=== PATIENT | female | born 1980 | race Caucasian/White ===

== ENCOUNTER 2022-04-22 17:50 | Outpatient (CLI) | payer OTHER, SELFPAY | END 2022-04-22 17:51 | disposition home or self-care (01) | LOC: LKVREF 05-03 14:07 | PROVIDERS: PCP Emergency Medicine; Visit Provider Registered Nurse | DX: Z01.419 Encounter for gynecological examination (general) (routine) without abnormal findings (principal); R30.0 Dysuria | CPT/HCPCS: 87086 ==

== ENCOUNTER 2022-07-06 19:01 | Outpatient (CLI) | payer BC, SELFPAY ==
[2022-07-07 15:56] LABS: Chloride* 103 mmol/L (96-114); Potassium* 4.3 mmol/L (3.6-5.1); Sodium* 137 mmol/L (135-149)
[2022-07-07 15:59] LABS: Blood Urea Nitrogen* 11 mg/dL (5-24); Carbon Dioxide* 26 mmol/L (20-32); Creatinine* 0.9 mg/dL (0.5-1.5); Estimated Glomerular Filt Rate 81 ml/min
[2022-07-07 16:00] LABS: Calcium* 9.5 mg/dL (8.4-10.6); Glucose* 90 mg/dL (60-115)
== END 2022-07-06 19:02 | disposition home or self-care (01) ==
LOC: LKVREF 19:02
PROVIDERS: PCP Emergency Medicine; Visit Provider Emergency Medicine
DX: I10 Essential (primary) hypertension (principal)
CPT/HCPCS: 80048

== ENCOUNTER 2022-07-19 09:33 | Outpatient (CLI) | payer BC, SELFPAY ==
--- NOTE | 2022-07-19 09:45 | CRLHL7_ITS ---
For Patients: As a result of the Century Cures Act, medical imaging exams and procedure reports are released immediately into your electronic medical record. You may view this report before your referring provider. If you have questions, please contact your health care provider. INDICATION: Hypertension TECHNIQUE: Grayscale, color Doppler and power Doppler evaluation of the kidneys/renal arteries performed. COMPARISON: None available FINDINGS: BILATERAL RENAL ARTERY DUPLEX ULTRASOUND ABDOMINAL AORTA: Peak systolic velocity = 85 cm/s. No aortic aneurysm. RIGHT KIDNEY: 11.3 cm in length. There is no hydronephrosis. Peak systolic velocity = 118 cm/second Renal artery to aortic peak systolic velocity ratio = 1.4 Resistive indices: 0.5-0.6 Renal vein = patent LEFT KIDNEY: 11.5 cm in length. There is no hydronephrosis. Peak systolic velocity = 120 cm/second Renal artery to aortic peak systolic velocity ratio = 1.4 Resistive indices: 0.5 Renal vein = patent IMPRESSION: No evidence of significant renal artery stenosis. Dictated by Tarik Nash MD @ 07/19/2022 11:25:26 AM (Electronically Signed)
== END 2022-07-19 09:34 | disposition home or self-care (01) ==
PROVIDERS: PCP Emergency Medicine; Visit Provider Emergency Medicine
DX: I10 Essential (primary) hypertension (principal)
CPT/HCPCS: 76775; 93975

== ENCOUNTER 2022-07-19 19:27 | Outpatient (CLI) | payer BC, SELFPAY ==
--- NOTE | 2022-07-27 12:11 | P.SLS_ITS ---
Sleep Study Details Details Interpreting Provider: Porter Ledesma MD Date of Sleep Study: 07/19/22 Sleep Study Details: STUDY TYPE:? Home ? BMI:? 25.5 ORDERING PROVIDER:? Luke INDICATION:? Concerns about sleep apnea ? SLEEP SUMMARY:? 386.6 monitored minutes RESPIRATORY SUMMARY:? AHI 2.8, supine 4.4, prone 0, left lateral 2.3 Low oxygen 92 Snoring 1% PERIODIC LIMB MOVEMENTS OF SLEEP:? Not recorded CARDIAC:? Range 54-90, mean 61.5 beats per minute IMPRESSION:? This study does not demonstrate clinically significant obstructive sleep apnea. RECOMMENDATION: If sleep disorder is strongly suspected would recommend an in- lab study
== END 2022-07-19 19:28 | disposition home or self-care (01) ==
LOC: SLEEP 19:28
PROVIDERS: PCP Emergency Medicine; Visit Provider Emergency Medicine
DX: R06.83 Snoring (principal); G47.8 Other sleep disorders; I10 Essential (primary) hypertension
CPT/HCPCS: 76775; 93975; 95806

== ENCOUNTER 2022-10-26 18:29 | Outpatient (CLI) | payer BC, SELFPAY | END 2022-10-26 18:30 | disposition home or self-care (01) | LOC: LKVREF 18:30 | PROVIDERS: PCP Emergency Medicine; Visit Provider Emergency Medicine | DX: I10 Essential (primary) hypertension (principal) | CPT/HCPCS: 80048 ==

== ENCOUNTER 2022-12-10 12:11 | Outpatient (CLI) | payer BC, SELFPAY ==
--- OUTSIDE RECORDS SUMMARY | 2022-12-11 08:12 | XMS_ITS | Patient Health Record ---
Author Name Unknown Organization [facility] Address [address] [address] Care Team Providers Care Design Manager Name Role Phone April Parker In [facility] Care Unavailable ALLERGIES No Known Allergies REASON FOR REFERRAL No Information MEDICATIONS Medication SIG (Take, Route, Frequency, Duration) Notes Start Date End Date Status Synthroid 112 MCG Oral 06/28/2018 A ctive Synthroid 100 MCG Oral 06/28/2018 A ctive Celecoxib 200 MG Oral 06/28/2018 Ac tive Triamcinolone Acetonide 0.025 % External 06/28/2018 Active Amoxicillin-Pot Clavulanate 875-125 MG Oral 06/28/2018 Activ e Terazosin HCl 5 MG Oral 06/28/2018 Active Gabapentin 800 MG Oral 06/28/2018 A ctive MUPIROCIN CALCIUM 2 % TOPICAL CREAM *Reorder from [facility] for eRx and Interaction Alerts* 06/28/2018 Active Famotidine 40 MG Oral 06/28/2018 Ac tive Fluconazole 150 MG Oral 06/28/2018 Active Wellbutrin XL 300 MG 1 tablet in the morning Orally Once a day Active Labetalol HCl 200 MG Oral 06/28/2018 Active Depo-Provera 150 MG/ML 1 ml Intramuscula r 90 days for 90 day(s) Active Ibuprofen 600 MG Oral 06/28/2018 Ac tive Colace 100 MG Oral 06/28/2018 Activ e valACYclovir HCl 1 GM Oral 06/28/2018 Active Ciprofloxacin HCl 500 MG Oral 06/28/2018 Active Tylenol with Codeine #3 300-30 MG Oral *Reorder from Nuvilex for eRx and Interaction Alerts* 06/28/2018 Active Doxycycline Hyclate 100 MG Oral 06/28/2018 Active Metronidazole 0.75 % Vaginal 06/28/2018 Active Docusate Sodium 100 MG Oral 06/28/2018 Active GaviLyte-C 240-22.72-6.72 -5.84 gram Oral *[facility]* 06/28/2018 Active Lidocaine 0.5 % as directed Externally Once a day for 10 days 06/25/2019 Active Escitalopram Oxalate 20 MG 1 tablet Orally Once a day Active Levothyroxine Sodium 100 MCG Oral 06/28/2018 Active Meloxicam 15 MG 1 tablet Orally Once a day for 30 day(s) 03/19/2020 Active Meloxicam 7.5 MG Oral 06/28/2018 Ac tive Liothyronine Sodium 5 MCG Oral 06/28/2018 Active Mupirocin Calcium 2% External *please rev iew for potential _update for e-prescription and drug interaction check* 06/25/2018 Not-Taking Percocet 5-325 MG Oral 06/28/2018 A ctive metroNIDAZOLE 0.75 % Vaginal 06/25/2018 Not-Taking Pepcid 40 MG Oral 06/28/2018 Active Acetaminophen-Codeine #2 300-15 MG Oral 06/28/2018 Active Depo-Provera 150 MG/ML 1 ml Intramuscula r 1 for 90 days Active Phenazopyridine HCl 200 MG Oral 06/28/2018 Active Valtrex 1 GM 1 tablet Orally Twice a day for 30 day(s) Not-Taking Naproxen 500 MG Oral 06/28/2018 Act javier Acyclovir 400 MG 1 tablet Orally Twice a day for 10 day(s) 06/25/2019 Not-Taking methylPREDNISolone 4 MG Oral 06/28/2018 Active MetroGel-Vaginal 0.75 % Vaginal *please review for potential _update for e-prescription and drug interaction check* 06/25/2018 Not-Taking oxyCODONE-Acetaminophen 5-325 MG Oral 06/28/2018 Active Fluconazole 150 MG Oral 06/25/2018 Not-Taking Nitrofurantoin Monohyd Macro 100 MG Oral 06/28/2018 Active Acetaminophen-Codeine #3 300-30 MG Oral 06/28/2018 Active SOCIAL HISTORY Sex Assigned At : Social History Observation Description Sex Assigned At Female PROBLEMS Problem Type ICD Code Onset Dates Problem Status W/U Status Risk SNOMED Code Notes Problem Other sex counseling (Z70.8) Active confirmed Counseling (425465093) Problem Contraceptive education (Z30.09) Active confirmed 414595907 Problem Irregular menses (N92.6) Active confirmed Menstrual disorder (811573862) Problem Negative test (Z32.02) Active confirmed 849641517 Problem Abnormal laboratory test result (R89.9) Active confirmed 694886877 Problem Elevated tumor markers (R97.8) Active confirmed 705465046 Encounters Encounter Location Date Provider Diagnosis [facility] [place] [place] [id number] 01/26/2022 [facility] [place] PLAN OF TREATMENT Pending Test Test Name Order Date US, Pelvis and TV 03/05/2020 Future Test Test Name Order Date MAMMOGRAM SCREENING (BILATERAL) 04/16/20 20 Insurance Providers Payer Name Payer Address Payer Phone Subscriber Number Group Number Insured Name Patient Relationship to Insured Coverage Start Date Coverage End Date [facility] [address] [place] [address] [id number] ASHLEY DUBON Self - patient is the insured MEDICATIONS ADMINISTERED Medication Instructions Date of Administration Dosage Notes Depo 08/19/2021 Depo 11/10/2021 MEDICAL (GENERAL) HISTORY Medical History History ICD Code Problems: Thyroidectomy Hypertensive disorder
== END 2022-12-10 12:12 | disposition home or self-care (01) ==
LOC: NFLDREF 12-11 08:10
PROVIDERS: PCP Emergency Medicine; Referring Provider Emergency Medicine; Visit Provider Nurse Practitioner Family
DX: R30.0 Dysuria (principal); R10.2 Pelvic and perineal pain; R11.0 Nausea; N30.01 Acute cystitis with hematuria
CPT/HCPCS: 87086

== ENCOUNTER 2022-12-28 12:03 | Outpatient (CLI) | payer BC, SELFPAY ==
--- OUTSIDE RECORDS SUMMARY | 2022-12-30 08:59 | XMS_ITS | Patient Health Record ---
Author Name Unknown Organization [facility] Address [address] [address] Care Team Providers Care Driver Education Instructor Name Role Phone Mj Escudero Unavailable [phone] April Parker In [facility] Care Unavailable [phone] ALLERGIES No Known Allergies REASON FOR REFERRAL [...] CALCIUM 2 % TOPICAL CREAM *Reorder from [facility] for eRx and Interaction Alerts* 06/28/2018 Active [...] Codeine #3 300-30 MG Oral *Reorder from [facility] for eRx and Interaction Alerts* 06/28/2018 Active Doxycycline Hyclate 100 MG Oral 06/28/2018 Active Metronidazole 0.75 % Vaginal 06/28/2018 Active Docusate Sodium 100 MG Oral 06/28/2018 Active GaviLyte-C 240-22.72-6.72 -5.84 gram Oral *Pick strength-form from [facility] for eRX* 06/28/2018 Active Lidocaine 0.5 % [...] Other sex counseling (Z70.8) Active confirmed Counseling (066324825) Problem Contraceptive education (Z30.09) Active confirmed 443259520 Problem Irregular menses (N92.6) Active confirmed Menstrual disorder (950145754) Problem Negative test (Z32.02) Active confirmed 141815812 Problem Abnormal laboratory test result (R89.9) Active confirmed 900301759 Problem Elevated tumor markers (R97.8) Active confirmed 525639814 Encounters Encounter Location Date Provider Diagnosis [facility] [place], [place] [id number] 01/26/2022 [facility] In [facility] IN [facility] [place], [place] [id number] 12/28/2022 Mj Escudero PLAN OF TREATMENT Pending Test Test Name Order Date US, Pelvis and TV 03/05/2020 Future Test Test Name Order Date MAMMOGRAM SCREENING (BILATERAL) 04/16/20 20 Insurance Providers Payer Name Payer Address Payer Phone Subscriber Number Group Number Insured Name Patient Relationship to Insured Coverage Start Date Coverage End Date [facility] [address] [place] [phone] [id number] ASHLEY DUBON Self - patient is the insured MEDICATIONS ADMINISTERED Medication Instructions Date of Administration Dosage Notes Depo 08/19/2021 Depo 11/10/2021 MEDICAL (GENERAL) HISTORY Medical History History ICD Code Problems: Thyroidectomy Hypertensive disorder
== END 2022-12-28 12:04 | disposition home or self-care (01) ==
LOC: NFLDREF 12-30 08:56
PROVIDERS: PCP Emergency Medicine; Referring Provider Emergency Medicine; Visit Provider Registered Nurse
DX: R30.0 Dysuria (principal); N39.0 Urinary tract infection, site not specified
CPT/HCPCS: 87086; 87186

== ENCOUNTER 2023-03-30 13:43 | Outpatient (CLI) | payer BC, SELFPAY ==
--- OUTSIDE RECORDS SUMMARY | 2023-04-06 11:05 | XMS_ITS | Patient Health Record ---
Author Name Unknown Organization [facility] Address [address] [address] Care Team Providers Care Cafeteria Counter Attendant Name Role Phone Mey Javier Unavailable [phone] Mj Escudero Unavailable [phone] ALLERGIES No Known Allergies REASON FOR REFERRAL [...] CALCIUM 2 % TOPICAL CREAM *Reorder from [facility] for eRx and Interaction Alerts* 06/28/2018 Active [...] Codeine #3 300-30 MG Oral *Reorder from [facility] for eRx and Interaction Alerts* 06/28/2018 Active Doxycycline Hyclate 100 MG Oral 06/28/2018 Active Metronidazole 0.75 % Vaginal 06/28/2018 Active Docusate Sodium 100 MG Oral 06/28/2018 Active GaviLyte-C 240-22.72-6.72 -5.84 gram Oral *Pick strength-form from [facility] for eRX* 06/28/2018 Active Lidocaine 0.5 [...] Problem Other sex counseling (Z70.8) Active confirmed Problem Contraceptive education (Z30.09) Active confirmed 323594586 Problem Irregular menses (N92.6) Active confirmed Problem Negative test (Z32.02) Active confirmed 868443807 Problem Abnormal laboratory test result (R89.9) Active confirmed 599618440 Problem Elevated tumor markers (R97.8) Active confirmed 021128836 Encounters Encounter Location Date Provider Diagnosis [facility] [place] [address] [place], [place] [id number] 12/28/2022 Mj Escudero [facility] [place] [address] [address] 02/24/2023 Mey Javier PLAN OF TREATMENT Pending Test Test Name Order Date US, Pelvis and TV 03/05/2020 Future Test Test Name Order Date MAMMOGRAM SCREENING (BILATERAL) 04/16/20 20 Insurance Providers Payer Name Payer Address Payer Phone Subscriber Number Group Number Insured Name Patient Relationship to Insured Coverage Start Date Coverage End Date [facility] [address] [place] [address] [id number] ASHLEY DUBON Self - patient is the insured MEDICATIONS ADMINISTERED Medication Instructions Date of Administration Dosage Notes Depo 08/19/2021 Depo 11/10/2021 MEDICAL (GENERAL) HISTORY Medical History History ICD Code Problems: Thyroidectomy Hypertensive disorder
== END 2023-03-30 13:44 | disposition home or self-care (01) ==
LOC: NFLDREF 04-06 10:56
PROVIDERS: PCP Emergency Medicine; Referring Provider Emergency Medicine; Visit Provider Emergency Medicine
DX: R06.02 Shortness of breath (principal); I10 Essential (primary) hypertension; Z13.6 Encounter for screening for cardiovascular disorders
CPT/HCPCS: 80048; 80061

== ENCOUNTER 2023-06-23 11:16 | Outpatient (CLI) | payer BC, SELFPAY ==
--- NOTE | 2023-06-23 11:00 | CRLHL7_ITS ---
For Patients: As a result of the Century Cures Act, medical imaging exams and procedure reports are released immediately into your electronic medical record. You may view this report before your referring provider. If you have questions, please contact your health care provider. INDICATION: RT ovarian cyst COMPARISON: none TECHNIQUE: 2D cunningham scale and color Doppler images were acquired of the pelvis using a transabdominal and transvaginal approach. FINDINGS: Sonographic images demonstrate a normal size and smooth outer contour of the uterus. Uterus measures 7.3 cm in length by 4.8 cm in AP diameter by 3.6 cm in transverse dimension. The myometrium has a mildly heterogeneous echotexture. The endometrial lining measures 5 mm in composite thickness. The right ovary measures 2.7 x 2.1 x 1.8 cm in size and the left ovary is absent. The right ovary demonstrates normal arterial and venous blood flow on color Doppler analysis. There are no suspicious fluid collections within the cul-de-sac. Simple anechoic right ovarian cyst is present measuring 1.9 x 1.2 x 1.3 cm. IMPRESSION: Simple right ovarian cyst measuring 1.9 cm. Dictated by Tarik Nash MD @ 06/23/2023 1:49:06 PM (Electronically Signed)
--- OUTSIDE RECORDS SUMMARY | 2023-06-23 11:19 | XMS_ITS | Clinical Summary ---
Author Name Unknown Organization [facility] Address [address] [place] [address] Care Team Providers Care Disposal Plant Operator Name Role Phone No Ref-Primary, Physician Primary Care Provider Allergies Active Allergy Reactions Criticality Noted Date Comments Penicillins 09/20/2019 Medications Medication Sig Dispensed Refills Start Date End Date Status levothyroxine (SYNTHROID/LEVOTHROI D) 25 MCG tablet Take 25 mcg by mouth daily 0 Active labetalol (NORMODYNE) 100 MG tablet Take 100 mg by mouth 2 times daily 0 Active thyroid (ARMOUR) 300 MG tablet Take 300 mg by mouth daily 0 Active ibuprofen (ADVIL/MOTRIN) 100 MG/5ML suspension Take 30 mLs (600 mg) by mouth every 6 hours as needed for fever or pain 600 mL 0 09/20/2019 Active ketorolac (TORADOL) 10 MG tablet Take 1 tablet (10 mg) by mouth every 6 hours as needed for moderate pain (4-6) 20 tablet 0 06/05/2022 Active Active Problems Problem Noted Date Diagnosed Date Ovarian cyst 07/18/2018 Sebaceous cyst 12/14/2017 Back abscess 12/07/2017 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 Social History Tobacco Use Types Packs/Day Years Used Date Smoking Tobacco: Never Smokeless Tobacco: Never Alcohol Use Standard Drinks/Week Comments Yes 0 (1 standard drink = 0.6 oz pur e alcohol) Adolescent Education Answer Date Record ed Getting School Help Needed Not on file 03/01 Sex and Gender Information Value Date Recorded Sex Assigned at Not on file Gender Identity Not on file Sexual Orientation Not on file Last Filed Vital Signs Vital Sign Reading Time Taken Comments Blood Pressure 161/93 06/05/2022 5:36 PM GENERAL COUNSEL Pulse 66 06/05/2022 5:36 PM GENERAL COUNSEL Temperature 36.7 ??C (98 ??F) 09/20/2019 10:01 AM CDT Respiratory Rate 20 06/05/2022 3:46 PM GENERAL COUNSEL Oxygen Saturation 100% 06/05/2022 3:46 PM GENERAL COUNSEL Inhaled Oxygen Concentration - - Weight 65.8 kg (145 lb) 05/12/2018 11:03 AM GENERAL COUNSEL Height 172.7 cm (5' 8) 05/12/2018 11:03 AM GENERAL COUNSEL Body Mass Index 22.05 05/12/2018 11:03 AM GENERAL COUNSEL Plan of Treatment Health Maintenance Due Date Last Done Comments ADVANCE CARE PLANNING 1978 ANNUAL REVIEW OF HM ORDERS 1978 CT COLONOGRAPHY 1978 FIT 1978 FLEX SIG 1978 HEPATITIS B IMMUNIZATION (1 of 3 - 3-dose series) 1978 MAMMO SCREENING 1978 TSH W/FREE T4 REFLEX 1978 YEARLY PREVENTIVE VISIT 1978 sDNA (Cologuard) 1978 COVID-19 Vaccine (#1) 1978 COLONOSCOPY 01/19/1988 COLORECTAL CANCER SCREENING 01/19/1988 HIV SCREENING 1993 HEPATITIS C SCREENING 01/19/1996 PAP 1999 DTAP/TDAP/TD IMMUNIZATION (1 - Tdap) 2003 LIPID 2018 GLUCOSE 05/12/2021 05/12/2018 INFLUENZA VACCINE (#1) 2023 3, 03/11/2013 PHQ-2 (once per calendar year) 2023 HPV IMMUNIZATION Aged Out No longer e ligible based on patient's age to complete this topic IPV IMMUNIZATION Aged Out No longer e ligible based on patient's age to complete this topic MENINGITIS IMMUNIZATION Aged Out No l onger eligible based on patient's age to complete this topic Pneumococcal Vaccine: Pediatrics (0 to 5 Years) and At-Risk Patients (6 to 64 Years) Aged Out No longer eligible b ased on patient's age to complete this topic RSV MONOCLONAL ANTIBODY Aged Out No l onger eligible based on patient's age to complete this topic Care Teams Disposal Plant Operator Relationship Specialty Start Date End Date No Ref-Primary, Physician PCP - General 05/12/18
--- OUTSIDE RECORDS SUMMARY | 2023-06-23 11:19 | XMS_ITS | Referral Summary ---
Author Name Unknown Organization [facility] Address [address] [place] [address] Care Team Providers Care Car Manager Name Role Phone No Ref-Primary, Physician Primary [...] Comments Blood Pressure 161/93 06/05/2022 5:36 PM TILER Pulse 66 06/05/2022 5:36 PM TILER Temperature 36.7 ??C (98 ??F) 09/20/2019 10:01 AM CDT Respiratory Rate 20 06/05/2022 3:46 PM TILER Oxygen Saturation 100% 06/05/2022 3:46 PM TILER Inhaled Oxygen Concentration - - Weight 65.8 kg (145 lb) 05/12/2018 11:03 AM TILER Height 172.7 cm (5' 8) 05/12/2018 11:03 AM TILER Body Mass Index 22.05 05/12/2018 11:03 AM TILER Plan of Treatment Not on file Care Teams Car Manager Relationship Specialty Start Date End Date No Ref-Primary, Physician PCP - General 05/12/18
--- OUTSIDE RECORDS SUMMARY | 2023-06-23 11:19 | XMS_ITS | Encounter Summary ---
Author Name Unknown Organization [facility] Address [address] [place] [address] Care Team Providers Care Senior Asic Design Engineer Name Role Phone Michelle Daigle MD Unavailable [phone] Reason for Visit * Reason Comments Follow up * Other (Routine) - Closed Specialty Diagnoses / Procedures Referred By Contac t Referred To Contact Neurology Diagnoses Intractable chronic migraine without aura and without status migrainosus Procedures [facility] PROCEDURE APPOINTMENT INJECTION,ONABOTULINUMTOXIN A Lupe Florence APRN, TOOLROOM CHECKER [address] [place] [address] [facility] Neurology [facility] [address] [place] [phone] Referral ID Status Reason Start Date Expiration Date Visits Re quested Visits Authorized [id number] Closed 03/09/2023 09/05/2023 2 2 Encounter Details Date Type Department Care Team (Late st Contact Info) Description 06/01/2023 8:00 AM VICE PRESIDENT CONSULTING SERVICES Office Visit [facility] Neurology - [address] [address] Lupe Florence APRN, TOOLROOM CHECKER [address] [place] [address] Intractable chronic migraine without aura and without status migrainosus (Primary Dx) Social History Tobacco Use Types Packs/Day Years Used Date Smoking Tobacco: Former Cigarettes Q uit: 2007 Smokeless Tobacco: Never Alcohol Use Standard Drinks/Week Comments Yes 0 (1 standard drink = 0.6 oz pur e alcohol) less than once a week Sex and Gender Information Value Date Recorded Sex Assigned at Not on file Gender Identity Not on file Sexual Orientation Not on file documented as of this encounter Progress Notes * Lupe Florence APRN, THU - 06/01/2023 8:00 AM CST CHIEF COMPLAINT: Headaches Interval summary: She continues to have daily headaches. She feels she has not had any migraines since starting Botox. She feels like her headaches are more minor. Severity of her headaches are a 5 out 10 for pain. The quality of her headaches are a throbbing, pressure like pain that lasts minutes a time. Alleviating factors are lying down, being in a dark quiet room and also using a cold pack on her head. She does not have auras. Associated symptoms are nausea, dizziness along with light and sound sensitivity. Her triggers are caffeine intake, sun exposure and stress. She has had about 10 headache FREE days per month. She has not gone to the ED for a headache since last visit. Her headaches are located all over her head. Her MIDAS core is 24. HISTORY OF PRESENT ILLNESS: Thank you for referring Sapna Barajas who I saw at [facility] in consultation for headache. The headaches started since her teenage years. She feels in the last five years theyhave been getting more frequent. Frequency of headaches is once or twice a week. Severity of the headache is a 9 out of 10 pain. Quality of the pain is described as throbbing, stabbing, pressure likepain. Duration of the headache is days at a time. Headache is alleviated by being in a dark. There is not an aura. Has associated dizziness, photophobia and phonophobia. Triggered by caffeine in take. Headache free days per month is 15. Patient has not gone to the emergency room for headache. Headac he is located in front right side of her head. No relation to any particular position. Has family history of headaches, her mom gets migraines. Sleeps about 7-8 hours per day. Is aggravated by physical activity. Coughing,sneezing or having a bowel movement does not trigger a headache. Denies any blurry vision or Tinnitus. Denies any eye redness, swelling or tearing. Has a history of head trauma, had a skiing accident. Medications tried: ibuprofen, Nurtec, Ubrelvy, Emgality and over counter CBD drops. Due to her medical history, she already on medications, Wellbutrin and Lexapro, that can interact with amitriptyline and Topamax. 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 Has a history of COVID and now has trouble breathing, she is on inhalers for long standing breathing issues, currently using an inhaler that is contraindicated with the use of propranolol. On review of outside records, the notes are consistent with the above symptoms. 02/2023: Started Botox PAST MEDICAL HISTORY Past Medical History: Diagnosis Date Anxiety disorder Depression Endometriosis Essential (primary) hypertension Hypothyroid MEDICATIONS Current Outpatient Medications: Medication Sig buPROPion (WELLBUTRIN XL) 300 mg oral extended release tablet 24 HR Take 1 tablet (300 mg) by mouthonce daily. clonazePAM (KLONOPIN) 0.5 mg oral tablet TAKE 1 TABLET BY MOUTH DAILY NEEDED FOR ANXIETY docusate sodium (COLACE) 100 mg oral capsule Take 1 capsule (100 mg) by mouth. escitalopram oxalate (LEXAPRO) 20 mg oral tablet Take 1 tablet (20 mg) by mouth once daily. hydrOXYzine (ATARAX) 10 mg oral tablet TAKE 1 TABLET BY MOUTH NIGHTLY AT BEDTIME ketorolac (TORADOL) 10 mg oral tablet TAKE 1 TABLET (10 MG) BY MOUTH EVERY 6 HOURS NEEDED FOR MODERATE PAIN (4-6) levothyroxine (SYNTHROID) 112 mcg oral tablet Take 1 tablet (112 mcg) by mouth. liothyronine (CYTOMEL) 5 mcg oral tablet TAKE 1/2 TABLET BY MOUTH TWICE A DAY lisinopriL-hydrochlorothiazide 10-12.5 mg oral tablet Take 1 tablet by mouth once daily. medroxyprogesterone acetate (DEPO-PROVERA IM) Inject into the muscle. RECREATION ATTENDANT THYROID 60 mg oral Tab tablet Take 1 tablet (60 mg) by mouth once daily. [id number] ACID ORAL Take by mouth. prochlorperazine (COMPAZINE) 5 mg oral tablet Take 1 tablet (5 mg) by mouth every 8 (eight) hours as needed. UBRELVY 100 mg oral Tab WIXELA INHUB 100-50 mcg/dose Inhl DsDv diskus inhaler INHALE 1 DOSE BY MOUTH EVERY 12 HOURS. RINSE MOUTH AFTER USE ALLERGIES Patient has no known allergies. FAMILY HISTORY No family history on file. SOCIAL HISTORY Social History Socioeconomic History Marital status: Spouse name: Not on file Number of children: Not on file Years of education: Not on file Highest education level: Not on file Occupational History Not on file Tobacco Use Smoking status: Former Types: Cigarettes Quit date: 2007 Years since quittin.0 Smokeless tobacco: Never Substance and Sexual Activity Alcohol use: Yes Comment: less than once a week Drug use: Not on file Sexual activity: Not on file Comment: Depo Other Topics Concern Not on file Social History Narrative Not on file Social Determinants of Health Financial Resource Strain: Not on file Food Insecurity: Not on file Transportation Needs: Not on file Physical Activity: Not on file Stress: Not on file Social Connections: Not on file Intimate Partner Violence: Not on file Housing Stability: Not on file ASSESSMENT: Is here for an evaluation regarding headaches. Most likely is Migraines. Luzma Alejo was seen today for follow up. Diagnoses and all orders for this visit: Intractable chronic migraine without aura and without status migrainosus - onabotulinumtoxinA (BOTOX) injection 200 Units; 200 Units, IntraMUSCULAR, ONCE, 1 dose, On Tue06/01/23 at 0845 - 03/2022 MRI brain was normal. MRA of her head did reveal two small aneurysms. Will repeat imagingin 03/2023, she has this scheduled - For prophylactic therapy I did Botox today. - For abortive therapy will continue Ubrelvy 100 mg PRN. No more than 4 pills per week. She always use She feels like [employer] is not working any more - Recommended life style changes of regular meals, scheduled sleep and regular exercise of 40 minutes 3 times a week and staying well hydrated. - Nausea: Will continue compazine PRN - Follow up in 12 weeks. Botox Procedure Note for Intractable Chronic Migraines Indication: Migraine Eyes: No ptosis Patients exposed skin was cleaned with an alcohol prep pad. I injected at the following sites: Acetylene Torch Solderer 2 sites: 5 units Procerus 1 site: 5 units Frontalis 4 sites: 20 units Temporalis 8 sites: 40 units Occipitalis 6 sites: 30 units Cervical paraspinal 4 sites: 20 units Trapezius 6 sites: 30 units Each intramuscular injection (IM) site = 0.1 mL = 5 Units BOTOX?? Total units prepared: 200 units (2 mL = 100 Unit) Total units injected: 150 units Total units discarded/wasted: 50units Needle size 30 g and 1 mL syringe. Repeat Botox injection in 12 weeks. Patient may come sooner if any issues should arise and call us with any questions. Lupe Florence APRN, CNP [facility] Total time spent today for visit was 30 minutes and included: Direct lujc-et-fmxu time with the patient and counseling, review of records, and documentation of visit. This does not include time spenton the procedure which was 10 additional minutes. PRESIDENT CONSULTING SERVICES documented in this encounter Plan of Treatment Not on file documented as of this encounter Visit Diagnoses Diagnosis Intractable chronic migraine without aura and without status migrainosus- Primary Chronic migraine without aura, with intractable migraine, so stated, without mention of status migrainosus documented in this encounter Administered Medications Inactive Administered Medications - up to 3 most recent administrations Medication Order MAR Action Action Date Dose Rate Site onabotulinumtoxinA (BOTOX) injection 200 Units 200 Units, IntraMUSCULAR, ONCE, 1 dose, On Tue06/01/23 at 0845 Given 06/01/2023 8:30 AM VICE PRESIDENT CONSULTING SERVICES 200 Units Pr ocedural documented in this encounter Care Teams Senior Asic Design Engineer Relationship Specialty Start Date End Date Michelle Daigle MD [address] [place] [address] Neurology 06/04/22 documented as of this encounter
--- OUTSIDE RECORDS SUMMARY | 2023-06-23 11:19 | XMS_ITS | Encounter Summary ---
Author Name Unknown Organization [facility] Address [address] [place] [address] Care Team Providers Care Drinking Water Technician Name Role Phone Michelle Daigle MD Unavailable [phone] Reason for Visit * (Routine) - Closed Specialty Diagnoses / Procedures Referred By Contac t Referred To Contact Diagnoses Aneurysm (HCC) Procedures MRA HEAD W/O CON Michelle Daigle MD [address] [place] [id number] Referral ID Status Reason Start Date Expiration Date Visits Re quested Visits Authorized [id number] Closed 03/23/2023 04/21/2023 1 1 Encounter Details Date Type Department Care Team (Late st Contact Info) Description 04/05/2023 9:00 AM WIND ENERGY TECHNICIAN Ancillary Procedure [facility] Neurology [address] [place] [phone] Aneurysm (HCC) Social History Tobacco Use Types Packs/Day Years Used Date Smoking Tobacco: Former Cigarettes Q uit: 2008 Smokeless Tobacco: Never Alcohol Use Standard Drinks/Week Comments Yes 0 (1 standard drink = 0.6 oz pur e alcohol) less than once a week Sex and Gender Information Value Date Recorded Sex Assigned at Not on file Gender Identity Not on file Sexual Orientation Not on file documented as of this encounter Miscellaneous Notes * Result Encounter Note - Michelle Daigle MD - 04/05/2023 9:00 AM WIND ENERGY TECHNICIAN Please inform patient that MRA is stable. Thank you very much. Michelle Daigle M.D. ENERGY TECHNICIAN documented in this encounter Plan of Treatment Not on file documented as of this encounter Procedures Procedure Name Priority Date/Time Associated Diagnosis Comments MRA HEAD W/O CON Routine 04/05/2023 9:01 AM WIND ENERGY TECHNICIAN Aneurysm (HCC) documented in this encounter Results * MRA HEAD W/O CON (04/05/2023 9:01 AM WIND ENERGY TECHNICIAN) Anatomical Region Laterality Modality Head Magnetic Resonan ce 04/05/2023 1:32 PM WIND ENERGY TECHNICIAN Impressions 04/05/2023 1:36 PM WIND ENERGY TECHNICIAN Stable size and morphology of the inferolaterally directed bilateral supraclinoid ICA aneurysms. No new aneurysm. Report signed by Tevin Dey MD Narrative 04/05/2023 1:36 PM WIND ENERGY TECHNICIAN EXAM: ??MRA HEAD WITHOUT CONTRAST, ??04/05/2023 CLINICAL DATA: ICD-10: ??I72.9 Aneurysm of unspecified site ?? COMPARISON: MRA 04/11/2022 TECHNIQUE: Noncontrast 3D TOF with multiplanar reformations. Additional 3- dimensional and multiplanar reconstructions created using an independent [employer] application. FINDINGS: The intracranial arteries are widely patent. No luminal irregularity, stenosis, or branch occlusion. Stable size and morphology of the inferolaterally directed bilateral supraclinoid ICA aneurysms, measuring up to 2.5 mm on the left and 1.5 mm on the right (image 82, series 2). No new aneurysm or other vascular malformation. Procedure Note Tevin Dey MD - 04/05/2023 EXAM: MRA HEAD WITHOUT CONTRAST, 04/05/2023 CLINICAL DATA: ICD-10: I72.9 Aneurysm of unspecified site COMPARISON: MRA 04/11/2022 TECHNIQUE: Noncontrast 3D TOF with multiplanar reformations. Additional3- dimensional and multiplanar reconstructions created using an independentStrandsa application. FINDINGS: The intracranial arteries are widely patent. No luminal irregularity,stenosis, or branch occlusion. Stable size and morphology of the inferolaterally directed bilateralsupraclinoid ICA aneurysms, measuring up to 2.5 mm on the left and 1.5 mmon the right (image 82, series 2). No new aneurysm or other vascularmalformation. IMPRESSION Stable size and morphology of the inferolaterally directed bilateralsupraclinoid ICA aneurysms. No new aneurysm. Report signed by Tevin Dey MD Michelle Daigle MD MRI ORDERABLE documented in this encounter Visit Diagnoses Diagnosis Aneurysm (HCC) Aneurysm of unspecified site documented in this encounter Care Teams Drinking Water Technician Relationship Specialty Start Date End Date Mihcelle Daigle MD [address] [place] [address] Neurology 06/04/22 documented as of this encounter
--- OUTSIDE RECORDS SUMMARY | 2023-06-23 11:19 | XMS_ITS | Encounter Summary ---
Author Name Unknown Organization [facility] Address [address] [place] [address] Care Team Providers Care Radiology Asst Name Role Phone Michelle Daigle MD Unavailable [phone] Reason for Referral * (Routine) - Closed Specialty Diagnoses / Procedures Referred By Contac t Referred To Contact Diagnoses Aneurysm (HCC) Procedures MRA HEAD W/O CON Michelle Daigle MD [address] [place] [address] Referral ID Status Reason Start Date Expiration Date Visits Re quested Visits Authorized [id number] Closed 03/23/2023 04/21/2023 1 1 * Other (Routine) - Closed Specialty Diagnoses / Procedures Referred By Contac t Referred To Contact Neurology Diagnoses Intractable chronic migraine without aura and without status migrainosus Procedures MCN PROCEDURE APPOINTMENT INJECTION,ONABOTULINUMTOXIN A Lupe Florence APRN, LIABILITY CLAIMS MANAGER [address] [place] [address] [facility] [address] [phone] Referral ID Status Reason Start Date Expiration Date Visits Re quested Visits Authorized [id number] Closed 03/09/2023 09/05/2023 2 2 Reason for Visit * Reason Comments Follow up Encounter Details Date Type Department Care Team (Late st Contact Info) Description 02/16/2023 11:15 AM CDT Office Visit [facility] - [facility] [address] [place] [phone] Lupe Florence APRN, CNP [address] [place] [address] Intractable chronic migraine without aura and without status migrainosus (Primary Dx); Nausea; Aneurysm (HCC); Dizziness Social History Tobacco Use Types Packs/Day Years [...] encounter Progress Notes * Lupe Florence APRN, CNP - 02/16/2023 11:15 AM CDT CHIEF COMPLAINT: Headaches Interval summary: She continues to have daily headaches. She has about 8 migraines per month. Severity of her headaches are a 4 out 10 for pain. The quality of her headaches are a pressure like pain that lasts hours atime. Alleviating factors are lying down, being in a dark quiet room and also using a cold pack on her head. She does not have auras. Associated symptoms are nausea along with scent, light and sound sensitivity. Her triggers are stress and caffiene intake. She has had about 12-15 headache FREE daysper month. She has not gone to the ED for a headache since last visit. Her headaches are located all over her head. Her MIDAS core is 32. HISTORY OF PRESENT ILLNESS: Thank you for referring Sapna Barajas who I saw at [facility] in consultation for headache. 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 Has a history of COVID and now has trouble breathing, she is on inhalers for long standing breathing issues, currently using an inhaler that is contraindicated with the use of propranolol. On review of outside records, the notes are consistent with the above symptoms. PAST MEDICAL HISTORY Past Medical History: Diagnosis [...] tablet (20 mg) by mouth once daily. galcanezumab-gnlm (EMGALITY PEN) 120 mg/mL SubQ PnIj Inject 1 mL (120 mg) into the muscle every 30 (thirty) days. Inject one syringe under skin every month. 3 months supply hydrOXYzine (ATARAX) 10 mg oral tablet TAKE 1 TABLET BY MOUTH NIGHTLY AT BEDTIME ketorolac (TORADOL) 10 mg oral tablet TAKE 1 TABLET (10 MG) BY MOUTH EVERY 6 HOURS NEEDED FOR MODERATE PAIN (4-6) labetaloL (NORMODYNE) 200 mg oral tablet Take 1 tablet (200 mg) by mouth. levothyroxine (SYNTHROID) 112 mcg oral tablet Take 1 tablet (112 mcg) by mouth. liothyronine (CYTOMEL) 5 mcg oral tablet TAKE 1/2 TABLET BY MOUTH TWICE A DAY lisinopriL-hydrochlorothiazide 10-12.5 mg oral tablet Take 1 tablet by mouth once daily. medroxyprogesterone acetate (DEPO-PROVERA IM) Inject into the muscle. [id number] ACID ORAL Take by mouth. prochlorperazine (COMPAZINE) [...] Types: Cigarettes Quit date: 2007 Years since quittin.7 Smokeless tobacco: Never Substance and Sexual Activity [...] without aura and without status migrainosus - MCN PROCEDURE APPOINTMENT Nausea - prochlorperazine (COMPAZINE) 5 mg oral tablet; Take 1 tablet (5 mg) by mouth every 8 (eight) hours as needed., Disp-30 tablet, R-3, e-Prescribe Dispense: 30 tablet; Refill: 3 Aneurysm (HCC) - MRA HEAD W/O CON; Future; Expected date: 02/16/2023 Dizziness Other orders - lisinopriL-hydrochlorothiazide 10-12.5 mg oral tablet; Take 1 tablet by mouth once daily., Historical - UBRELVY 100 mg oral Tab; RADHA, Historical - 03/2022 MRI brain was normal. MRA of her head did reveal two small aneurysms. Will repeat imagingin 03/2023 - For prophylactic therapy will stop Emgality, this is no longer working well for her. Will plan tostart Botox [place] - For abortive therapy will continue Ubrelvy 100 mg PRN. No more than 4 pills per week. She feels like [employer] is not working any more - Recommended life style changes of regular meals, scheduled sleep and regular exercise of 40 minutes 3 times a week and staying well hydrated. - Nausea: Will continue compazine PRN - Follow up in 1 month from Nicole Florence APRN, CNP [facility] Total time spent today for visit was 45 minutes and included: Direct mjve-us-erhd time with the patient and counseling, review of records, and documentation of visit. documented in this encounter Plan of Treatment Not on file documented as of this encounter Results * MRA HEAD W/O CON (04/05/2023 9:01 AM LICENSED OPTICAL DISPENSER) Anatomical Region Laterality Modality Head Magnetic Resonan ce 04/05/2023 1:32 PM LICENSED OPTICAL DISPENSER Impressions 04/05/2023 1:36 PM LICENSED OPTICAL DISPENSER Stable size and morphology of the inferolaterally directed bilateral supraclinoid ICA aneurysms. No new aneurysm. Report signed by Tevin Dey MD Narrative 04/05/2023 1:36 PM LICENSED OPTICAL DISPENSER EXAM: ??MRA HEAD WITHOUT CONTRAST, ??04/05/2023 CLINICAL DATA: ICD-10: ??I72.9 Aneurysm of unspecified site ?? COMPARISON: MRA 04/11/2022 TECHNIQUE: Noncontrast 3D TOF with multiplanar reformations. Additional 3- dimensional and multiplanar reconstructions created using an independent [employer] application. FINDINGS: The intracranial arteries are widely [...] dimensional and multiplanar reconstructions created using an independent[employer] application. FINDINGS: The intracranial arteries are widely [...] documented in this encounter Visit Diagnoses Diagnosis Intractable chronic migraine without aura and without status migrainosus- Primary Chronic migraine without aura, with intractable migraine, so stated, without mention of status migrainosus Nausea Nausea alone Aneurysm (HCC) Aneurysm of unspecified site Dizziness Dizziness and giddiness Aneurysm (HCC) Aneurysm of unspecified site documented in this encounter Care Teams Radiology Asst Relationship Specialty Start Date End Date Michelle Daigle MD [address] [place] [address] Neurology 06/04/22 documented as of this encounter
--- OUTSIDE RECORDS SUMMARY | 2023-06-23 11:19 | XMS_ITS | Clinical Summary ---
Author Name Unknown Organization [facility] Address [address] [place] [address] Care Team Providers Care Bed Operator Name Role Phone Michelle Daigle MD Unavailable Allergies No known active allergies Medications Medication Sig Dispensed Refills Start Date End Date Status [id number] ACID ORAL Take by mouth. 0 Active buPROPion (WELLBUTRIN XL) 300 mg oral extended release tablet 24 HR Take 1 tablet (300 mg) by mouth once daily. 0 03/22/2022 Active clonazePAM (KLONOPIN) 0.5 mg oral tablet TAKE 1 TABLET BY MOUTH DAILY NEEDED FOR ANXIETY 0 03/22/2022 Active docusate sodium (COLACE) 100 mg oral capsule Take 1 capsule (100 mg) by mouth. 0 Active escitalopram oxalate (LEXAPRO) 20 mg oral tablet Take 1 tablet (20 mg) by mouth once daily. 0 02/01/2022 Active hydrOXYzine (ATARAX) 10 mg oral tablet TAKE 1 TABLET BY MOUTH NIGHTLY AT BEDTIME 0 12/28/2021 Active levothyroxine (SYNTHROID) 112 mcg oral tablet Take 1 tablet (112 mcg) by mouth. 0 Active liothyronine (CYTOMEL) 5 mcg oral tablet TAKE 1/2 TABLET BY MOUTH TWICE A DAY 0 02/15/2022 Active medroxyprogestero ne acetate (DEPO-PROVERA IM) Inject into the muscle. 0 Active lisinopriL-hydroc hlorothiazide 10-12.5 mg oral tablet Take 1 tablet by mouth once daily. 0 01/27/2023 Active UBRELVY 100 mg oral Tab 0 02/15/2023 Active prochlorperazine (COMPAZINE) 5 mg oral tabletIndications :Nausea Take 1 tablet (5 mg) by mouth every 8 (eight) hours as needed. 30 tablet 3 02/16/2023 Active BURIAL VAULT SETTER THYROID 60 mg oral Tab tablet Take 1 tablet (60 mg) by mouth once daily. 0 02/24/2023 Active WIXELA INHUB 100-50 mcg/dose Inhl DsDv diskus inhaler INHALE 1 DOSE BY MOUTH EVERY 12 HOURS. RINSE MOUTH AFTER USE 0 02/27/2022 06/01/2023 Discontinued ketorolac (TORADOL) 10 mg oral tablet TAKE 1 TABLET (10 MG) BY MOUTH EVERY 6 HOURS NEEDED FOR MODERATE PAIN (4-6) 0 06/05/2022 06/01/2023 Discontinued Hospital, Clinic, or Other Facility Administered Medication Ordered Dose Route Frequency Start Date End Date Status onabotulinumtoxinA (BOTOX) injection 200 UnitsIndications:Intractabl e chronic migraine without aura and without status migrainosus 200 Units IM ONCE 06/01/2023 06/01/2023 Ended Active Problems Problem Noted Date Diagnosed Date Ovarian cyst 07/18/2018 Sebaceous cyst 12/14/2017 Back abscess 12/07/2017 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 Encounters Date Type Department Care Team Description 06/01/2023 8:00 AM SALESPERSON [employer] BOYS[employer]OTH[employer] Office Visit [address] [address] Lupe [place], IMPROVEMENT RN, CARPORT ERECTOR Intractable chronic migraine without aura and without status migrainosus (Primary Dx) 04/05/2023 9:00 AM SALESPERSON [employer] Ancillary Procedure [address] [phone] Aneurysm (HCC) 04/05/2023 Travel from Last 3 Months Immunizations Name Administration Dates Next Due Influenza 03/11/2013 Social History Tobacco Use Types Packs/Day Years Used Date Smoking Tobacco: Former Cigarettes Q uit: 2008 Smokeless Tobacco: Never Tobacco Cessation:Counseling Given: Not Answered Alcohol Use Standard Drinks/Week Comments Yes 0 (1 standard drink = 0.6 oz pur e alcohol) less than once a week Sex and Gender Information Value Date Recorded Sex Assigned at Not on file Gender Identity Not on file Sexual Orientation Not on file Last Filed Vital Signs Vital Sign Reading Time Taken Comments Blood Pressure - - Pulse - - Temperature - - Respiratory Rate - - Oxygen Saturation - - Inhaled Oxygen Concentration - - Weight 72.6 kg (160 lb) 03/09/2023 3:26 PM CDT Height 172.7 cm (5' 8) 03/09/2023 3:26 PM CDT Body Mass Index 24.33 03/09/2023 3:26 PM CDT Plan of Treatment Health Maintenance Due Date Last Done Comments Colonoscopy 1978 Hepatitis C Screening 1978 Lipid Screening 1978 Mammogram Screening 1978 Pap Smear 1978 COVID-19 Vaccine (#1) 1978 Anxiety Screening (CARMELINA-2) 1979 Depression Assessment (PHQ-2) 1979 Adult Tetanus Booster 1997 Influenza Vaccine (#1) 2023 03/11/2013 Pneumococcal <65 Aged Out No longer e ligible based on patient's age to complete this topic Procedures Procedure Name Priority Date/Time Associated Diagnosis Comments MRA HEAD W/O CON Routine 04/05/2023 9:01 AM SALESPERSON [employer] Aneurysm (HCC) from Last 3 Months Results * MRA HEAD W/O CON (04/05/2023 9:01 AM SALESPERSON [employer]) Anatomical Region Laterality Modality Head Magnetic Resonan ce 04/05/2023 1:32 PM SALESPERSON [employer] Impressions 04/05/2023 1:36 PM SALESPERSON [employer] Stable size and morphology of the inferolaterally directed bilateral supraclinoid ICA aneurysms. No new aneurysm. Report signed by Tevin Dey MD Narrative 04/05/2023 1:36 PM SALESPERSON [employer] EXAM: ??MRA HEAD WITHOUT CONTRAST, ??04/05/2023 CLINICAL [...] dimensional and multiplanar reconstructions created using an [employer] application. FINDINGS: The intracranial arteries are widely [...] Dey MD Michelle Daigle MD MRI ORDERABLE from Last 3 Months Care Teams Bed Operator Relationship Specialty Start Date End Date Michelle Daigle MD [address] [place] [address] Neurology 06/04/22
--- OUTSIDE RECORDS SUMMARY | 2023-06-23 11:19 | XMS_ITS | Encounter Summary ---
Author Name Unknown Organization [facility] Address [address] [place] [address] Care Team Providers Care Betting Agency Manager Name Role Phone Michelle Daigle MD Unavailable [phone] Reason for Visit * Reason Comments Follow up * Other (Routine) - Closed Specialty Diagnoses / Procedures Referred By Contac t Referred To Contact Neurology Diagnoses Intractable chronic migraine without aura and without status migrainosus Procedures [facility] PROCEDURE APPOINTMENT INJECTION,ONABOTULINUMTOXIN A Lupe [place] APRN, POLICE OFFICER [address] [place] [address] [address] [facility] Neurology [facility] [address] [place] [phone] Referral ID Status Reason Start Date Expiration Date Visits Re quested Visits Authorized [id number] Closed 03/09/2023 09/05/2023 2 2 Encounter Details Date Type Department Care Team (Late st Contact Info) Description 03/09/2023 3:00 PM CDT Office Visit [facility] [address] [place] [address] [address] [place] [address] Lupe [place] APRN, POLICE OFFICER [address] [place] [address] Intractable chronic migraine without aura and without [...] on file documented as of this encounter Last Filed Vital Signs Vital Sign Reading Time Taken Comments Blood Pressure - - Pulse - - Temperature - - Respiratory Rate - - Oxygen Saturation - - Inhaled Oxygen Concentration - - Weight 72.6 kg (160 lb) 03/09/2023 3:26 PM CDT Height 172.7 cm (5' 8) 03/09/2023 3:26 PM CDT Body Mass Index 24.33 03/09/2023 3:26 PM CDT documented in this encounter Progress Notes * Lupe [place], ALEJANDRA, POLICE OFFICER - 03/09/2023 3:00 PM CDT CHIEF COMPLAINT: Headaches Interval summary: Sapna is here today for her first Botox. She continues to have daily headaches. She has about 8 migraines per month. Severity of her headaches are a 5 out 10 for pain. The quality of her headaches are a throbbing, pressure like pain that lasts hours a time. Alleviating factors are lying down, being in a dark quiet room and also using a cold pack on her head. She does not have auras. Associated symptoms are nausea along with scent, light and sound sensitivity. Her triggers are caffeine intake. She has had about 15 headache FREE days per month. She has not gone to the ED for a headache since last visit. Her headaches are located all over her head. Her MIDAS core is 15. HISTORY OF PRESENT ILLNESS: Thank you for referring Sapna Barajas who I saw at [facility] in consultation for headache. [...] one of these medications it can increase BRANCH SERVICE LEADER depression so she wouldnot be able to [...] acetate (DEPO-PROVERA IM) Inject into the muscle. CHIPPER THYROID 60 mg oral Tab tablet Take 1 tablet (60 mg) by mouth once daily. [id number] ACID ORAL Take by mouth. prochlorperazine (COMPAZINE) [...] Types: Cigarettes Quit date: 2007 Years since quittin.8 Smokeless tobacco: Never Substance and Sexual Activity [...] 200 Units, IntraMUSCULAR, ONCE, 1 dose, On Tue03/09/23 at 1530 Other orders - CHIPPER THYROID 60 mg oral Tab tablet; Take 1 tablet (60 mg) by mouth once daily., RADHA, Historical - 03/2022 MRI brain was normal. MRA of her head did reveal two small aneurysms. Will repeat imagingin 03/2023, she has this scheduled - For prophylactic therapy I did first Botox today. - For abortive therapy will continue Ubrelvy 100 mg PRN. No more than 4 pills per week. She feels like OnDeck is not working any more - Recommended [...] pad. I injected at the following sites: Director Of Physical Security 2 sites: 5 units Procerus 1 site: [...] with any questions. Lupe [place] APRN, CNP [facility] Total time spent today for visit was 30 minutes and included: Direct zahs-xz-kgcu time with the patient and counseling, review of records, and documentation of visit. This does not include time spenton the procedure which was 10 additional minutes. documented in this encounter Plan of Treatment [...] 200 Units, IntraMUSCULAR, ONCE, 1 dose, On Tue03/09/23 at 1530 Given 03/09/2023 3:23 PM CDT 200 Units P rocedural documented in this encounter Care Teams Betting Agency Manager Relationship Specialty Start Date End Date Michelle Daigle MD [address] [place] [address] Neurology 06/04/22 documented as of this encounter
--- OUTSIDE RECORDS SUMMARY | 2023-06-23 11:19 | XMS_ITS | Encounter Summary ---
Author Name Unknown Organization [facility] Address [address] [place] [address] Care Team Providers Care Stock Taker Name Role Phone Michelle Daigle MD Unavailable [phone] Encounter Details Date Type Department Care Team (Latest Contact Info) Description 04/05/2023 Travel Social History Tobacco Use Types Packs/Day Years [...] on file documented as of this encounter Plan of Treatment Not on file documented as of this encounter Visit Diagnoses Not on filedocumented in this encounter Care Teams Stock Taker Relationship Specialty Start Date End Date Michelle Daigle MD [address] [place] [address] Neurology 06/04/22 documented as of this encounter
--- OUTSIDE RECORDS SUMMARY | 2023-06-23 11:19 | XMS_ITS | Referral Summary ---
Author Name Unknown Organization [facility] Address [address] [place] [address] Care Team Providers Care Mop Maker Name Role Phone Michelle Daigle MD Unavailable [phone] Encounters Date Type Department Care Team Description 06/01/2023 8:00 AM RURAL MAIL CARRIER Office Visit [address] [phone] Lupe [place], PSYCHOLOGY INTERN, NURSE EMERGENCY ROOM Intractable chronic migraine without aura and without status migrainosus (Primary Dx) 04/05/2023 Travel 04/05/2023 9:00 AM RURAL MAIL CARRIER Ancillary Procedure [address] [phone] Aneurysm (HCC) from Last 3 Months Allergies No known active allergies Medications Medication Sig Dispensed Refills Start Date End Date Status [id number] ACID ORAL Take by mouth. 0 Active [...] as needed. 30 tablet 3 02/16/2023 Active TEST CELL TECHNICIAN THYROID 60 mg oral Tab tablet Take [...] 12/14/2017 Back abscess 12/07/2017 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 Immunizations Name Administration Dates Next Due Influenza [...] 03/09/2023 3:26 PM CDT Plan of Treatment Not on file Procedures Procedure Name Priority Date/Time Associated Diagnosis Comments MRA HEAD W/O CON Routine 04/05/2023 9:01 AM RURAL MAIL CARRIER Aneurysm (HCC) from Last 3 Months Results * MRA HEAD W/O CON (04/05/2023 9:01 AM RURAL MAIL CARRIER) Anatomical Region Laterality Modality Head Magnetic Resonan ce 04/05/2023 1:32 PM RURAL MAIL CARRIER Impressions 04/05/2023 1:36 PM RURAL MAIL CARRIER Stable size and morphology of the inferolaterally directed bilateral supraclinoid ICA aneurysms. No new aneurysm. Report signed by Tevin Dey MD Narrative 04/05/2023 1:36 PM RURAL MAIL CARRIER EXAM: ??MRA HEAD WITHOUT CONTRAST, ??04/05/2023 CLINICAL [...] dimensional and multiplanar reconstructions created using an [employer] application. FINDINGS: The intracranial arteries are widely [...] ORDERABLE from Last 3 Months Care Teams Mop Maker Relationship Specialty Start Date End Date Michelle Daigle MD [address] [place] [address] Neurology 06/04/22
--- OUTSIDE RECORDS SUMMARY | 2023-06-23 11:20 | XMS_ITS | Patient Health Record ---
Author Name Unknown Organization [facility] Address [address] [address] Care Team Providers Care Senior Net Software Developer Name Role Phone Mey Javier Unavailable [phone] Mj Escudero Unavailable [phone] ALLERGIES No Known Allergies REASON FOR REFERRAL [...] CALCIUM 2 % TOPICAL CREAM *Reorder from [employer] for eRx and Interaction Alerts* 06/28/2018 Active [...] 240-22.72-6.72 -5.84 gram Oral *Pick strength-form from [facility] for eRX* 06/28/2018 Active Lidocaine 0.5 [...] Other sex counseling (Z70.8) Active confirmed Counseling (664408978) Problem Contraceptive education (Z30.09) Active confirmed [id number] Problem Irregular menses (N92.6) Active confirmed Menstrual disorder (757926525) Problem Negative test (Z32.02) Active confirmed [id number] Problem Abnormal laboratory test result (R89.9) Active confirmed [id number] Problem Elevated tumor markers (R97.8) Active confirmed [id number] Encounters Encounter Location Date Provider Diagnosis [facility] [place] [id number] 12/28/2022 Mj Escudero [facility] [address] [address] 02/24/2023 Mey Javier PLAN OF TREATMENT Pending Test Test Name Order Date US, Pelvis and TV 03/05/2020 Future Test Test Name Order Date MAMMOGRAM SCREENING (BILATERAL) 04/16/20 20 Insurance Providers Payer Name Payer Address Payer Phone Subscriber Number Group Number Insured Name Patient Relationship to Insured Coverage Start Date Coverage End Date [facility] [address] [place] [address] [phone] [id number] ASHLEY DUBON Self - patient is the insured MEDICATIONS ADMINISTERED Medication Instructions Date of Administration Dosage Notes Depo 08/19/2021 Depo 11/10/2021 MEDICAL (GENERAL) HISTORY Medical History History ICD Code Problems: Thyroidectomy Hypertensive disorder
--- OUTSIDE RECORDS SUMMARY | 2023-06-23 11:20 | XMS_ITS | Encounter Summary ---
Author Name Unknown Organization [facility] Address [address] [place] [address] Care Team Providers Care Safety Investigator/Cause Analyst Name Role Phone Michelle Daigle MD Unavailable [phone] Reason for Visit * Reason Comments Follow up Encounter Details Date Type Department Care Team (Late st Contact Info) Description 06/30/2022 11:00 AM MULTIMEDIA DEVELOPER [facility] [address] [place] [phone] Lupe [place] APRN, FLOTATION TENDER [address] [place], [place] [address] Intractable chronic migraine without aura and without status migrainosus (Primary Dx); Nausea Social History Tobacco Use Types Packs/Day Years [...] Notes * Lupe [place] APRN, THU - 06/30/2022 11:00 AM CST CHIEF COMPLAINT: Headaches Interval summary: She recently fell and hit her head on ice and was diagnosed with a concussion which caused her migraines to flare. She went to the ED for evaluation and was given some medications for her headache. She also didn't get her Emgality until a couple weeks ago, so it is unclear if it helping with her migraines. She states it was better until the fall and now she is having daily headaches with migraines once or twice a week. Severity of her headaches are a 7 out 10 for pain. The quality of her headaches are a pressure like pain that lasts days a time. Alleviating factors are lying down, being in a dark quiet room and also using a cold pack on her head. She does not have auras. Associated symptomsare dizziness, light and sound sensitivity. Her triggers are stress and caffiene intake. She has had about 10 headache FREE days per month, prior to her concussion. Her headaches are located all overher head. Her MIDAS core is 50. HISTORY OF PRESENT ILLNESS: Thank you for referring Sapna Barajas who I saw at [facility] in consultation for headache. [...] of head trauma, had a skiing accident. Has tried ibuprofen, Nurtec and over counter CBD drops. Due to her medical history, she already on medications, Buprenorphine and Lexapro, that can interact with amitriptyline and Topamax. 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 She is also already on a high dose of labetalol and would not suggest adding an additional beta rosalie. On review of outside records, the notesare consistent with the above symptoms. PAST MEDICAL [...] 6 HOURS NEEDED FOR MODERATE PAIN (4-6) ketorolac (TORADOL) 10 mg oral tablet Take 1 tablet (10 mg) by mouth. labetaloL (NORMODYNE) 200 mg oral tablet Take 1 tablet (200 mg) by mouth. levothyroxine (SYNTHROID) 112 mcg oral tablet Take 1 tablet (112 mcg) by mouth. liothyronine (CYTOMEL) 5 mcg oral tablet TAKE 1/2 TABLET BY MOUTH TWICE A DAY liothyronine (CYTOMEL) 5 mcg oral tablet Take 1 tablet (5 mcg) by mouth. medroxyprogesterone acetate (DEPO-PROVERA IM) Inject into the muscle. NURTEC ODT 75 mg oral TbDL TAKE 1 TABLET BY MOUTH EVERY DAY NEEDED phenazopyridine (PYRIDIUM) 100 mg oral tablet TAKE 1 TABLET BY MOUTH 3 TIMES DAILY NEEDED FOR PAIN [id number] ACID ORAL Take by mouth. prochlorperazine (COMPAZINE) 5 mg oral tablet Take 1 tablet (5 mg) by mouth every 8 (eight) hours as needed. sulfamethoxazole 800 mg-trimethoprim 160 mg (BACTRIM DS;SEPTRA DS) 800-160 mg oral tablet TAKE 1 TABLET BY MOUTH TWICE DAILY FOR 5 DAYS WIXELA INHUB 100-50 mcg/dose Inhl DsDv diskus [...] Types: Cigarettes Quit date: 2007 Years since quittin.1 Smokeless tobacco: Never Substance and Sexual Activity [...] on file Housing Stability: Not on file Neurological examination Mental Status: The patient is alert and oriented. Recent memory is normal. The person is attentive with normal concentration. Language is fluent. Speech is of normal higinio and character. The speech is nondysarthric. Fund of knowledge is normal. Cranial Nerve I: Not tested. Cranial Nerve II: The pupils are equal round and reactive to light. Cranial Nerves III, IV, : The extraocular movements are full in all directions of gaze without ophthalmoplegia or nystagmus. Cranial Nerve V: Light touch is intact and symmetric in the V1, V2, V3 divisions of both trigeminal nerves. Cranial Nerve XI: Normal shoulder shrug. Motor: There are no involuntary movements. Muscle Strength: The strength was 5/5 in upper and lower extremities bilaterally. Reflexes: The reflexes are 2/4 for biceps, patellar tendon reflexes bilaterally and symmetrically. Sensory: The sensory examination is normal for light touch bilaterally and symmetrically. Cerebellar: The cerebellar examination is normal to finger to nose test. Musculoskeletal system and Gait: The gait is normal based with normal base and station. No ataxia. ASSESSMENT: Is here for an evaluation regarding headaches. Most likely is Migraines. Luzma Alejo was seen today for follow up. Diagnoses and all orders for this visit: Intractable chronic migraine without aura and without status migrainosus - galcanezumab-gnlm (EMGALITY PEN) 120 mg/mL SubQ PnIj; Inject 1 mL (120 mg) into the muscle every 30 (thirty) days. Inject one syringe under skin every month. 3 months supply, Disp-3 mL, R-1, e-Prescribe Dispense: 3 mL; Refill: 1 Nausea - prochlorperazine (COMPAZINE) 5 mg oral tablet; Take 1 tablet (5 mg) by mouth every 8 (eight) hours as needed., Disp-30 tablet, R-3, e-Prescribe Dispense: 30 tablet; Refill: 3 Other orders - sulfamethoxazole 800 mg-trimethoprim 160 mg (BACTRIM DS;SEPTRA DS) 800-160 mg oral tablet; TAKE 1TABLET BY MOUTH TWICE DAILY FOR 5 DAYS, Historical - phenazopyridine (PYRIDIUM) 100 mg oral tablet; TAKE 1 TABLET BY MOUTH 3 TIMES DAILY NEEDED FORPAIN, Historical - ketorolac (TORADOL) 10 mg oral tablet; TAKE 1 TABLET (10 MG) BY MOUTH EVERY 6 HOURS NEEDED FORMODERATE PAIN (4-6), Historical - ketorolac (TORADOL) 10 mg oral tablet; Take 1 tablet (10 mg) by mouth., Historical - 03/2022 MRI brain was normal. MRA of her head did reveal two small aneurysms. Will repeat imagingin 03/2023 - For prophylactic therapy will continue Emgality. - For abortive therapy will continue Ubrelvy 100 mg PRN, she feels like Koziote is not working any more - Recommended life style changes of regular meals, scheduled sleep and regular exercise of 40 minutes 3 times a week and staying well hydrated. - Nausea: Will stop Zofran, this isn't helping with her nausea and will start Compazine - Follow up in 2 months. Lupe [place] APRN, CNP [facility] Total time spent today for visit was 45 minutes and included: Direct lzoz-lf-wleu time with the patient and counseling, review of records, and documentation of visit. IMEDIA DEVELOPER documented in this encounter Plan of Treatment Not on file documented as of this encounter Visit Diagnoses Diagnosis Intractable chronic migraine without aura and without status migrainosus- Primary Chronic migraine without aura, with intractable migraine, so stated, without mention of status migrainosus Nausea Nausea alone documented in this encounter Care Teams Safety Investigator/Cause Analyst Relationship Specialty Start Date End Date Michelle Daigle MD [address] [place] [address] Neurology 06/04/22 documented as of this encounter
== END 2023-06-23 11:17 | disposition home or self-care (01) ==
LOC: US 11:17
PROVIDERS: PCP Emergency Medicine; Visit Provider Emergency Medicine
DX: N83.201 Unspecified ovarian cyst, right side (principal)
CPT/HCPCS: 76830; 76856

== ENCOUNTER 2024-11-08 08:14 | Outpatient (CLI) | payer BC, SELFPAY | END 2024-11-08 08:15 | disposition home or self-care (01) | LOC: NFLDREF 11-12 09:52 | PROVIDERS: PCP Emergency Medicine; Referring Provider Emergency Medicine; Visit Provider Emergency Medicine | DX: Z00.00 Encounter for general adult medical examination without abnormal findings (principal); I10 Essential (primary) hypertension; E06.3 Autoimmune thyroiditis | CPT/HCPCS: 80053; 80061; 82043; 82570; 84443 ==

== ENCOUNTER 2024-12-31 09:43 | Outpatient (CLI) | payer BC, SELFPAY | END 2024-12-31 09:44 | disposition home or self-care (01) | LOC: LKVREF 09:44 | PROVIDERS: PCP Physician Assistant Medical; Visit Provider Physician Assistant Medical | DX: F90.9 Attention-deficit hyperactivity disorder, unspecified type (principal); Z79.899 Other long term (current) drug therapy | CPT/HCPCS: 80306 ==